=== PATIENT | male | born 1975 | race African-American/Black ===

== ENCOUNTER 2016-05-17 21:05 | Emergency (ER) | payer MEDICAID ==
[2016-04-30 12:41] VITALS: BMI 22.7
[~2016-05-17 21:05] MED LIST: MEGACE400 MG/10 PO; NORCO 7.5/325 T1 TA1 PO; SYNTHROID25 MCG PO; VENTOLIN HFA18 GM INH
== END 2016-05-18 00:03 | disposition home or self-care (01) ==
LOC: D.ER 21:05
DX: G89.18 Other acute postprocedural pain (principal); L08.9 Local infection of the skin and subcutaneous tissue, unspecified; F17.200 Nicotine dependence, unspecified, uncomplicated; F41.9 Anxiety disorder, unspecified; J45.909 Unspecified asthma, uncomplicated; F32.9 Major depressive disorder, single episode, unspecified

== ENCOUNTER 2016-07-24 15:26 | Emergency (ER) | payer MEDICAID ==
[2016-04-30 12:41] VITALS: BMI 22.7
[2016-07-24 17:51] LABS: BASOPHILS 0.2 % (0.0-2.0); HEMATOCRIT 39.6 % (42.0-54.0); HEMOGLOBIN 13.4 g/dL (13.5-17.5); IMMATURE GRANULOCYTES 0.4 % (0-5); LYMPHOCYTES 39.9 % (15-50); MCH 29.9 pg (26.0-34.0); MCHC 33.8 g/dL (31.0-37.0); MCV 88.4 fL (80.0-100.0); MEAN PLATELET VOLUME 8.7 fL (7.4-10.4); MONOCYTES 5.2 % (2-11); NEUTROPHILS 53.3 % (40-80); RBC 4.48 10x6/uL (4.20-6.10); RDW 12.3 % (11.5-14.5); WBC 10.5 10x3/uL (4.8-10.8)
[2016-07-24 17:58] LABS: PLATELET COUNT 282 10x3/uL (130-400)
[2016-07-24 18:03] LABS: ALBUMIN 3.8 g/dL (3.4-5.0); ALKALINE PHOSPHATASE 93 U/L (46-116); ALT (SGPT) 16 U/L (10-68); BILIRUBIN - TOTAL 0.54 mg/dL (0.2-1.3); CALC OSMOLALITY 278 mosm/kg (275-300); CALCIUM 8.6 mg/dL (8.5-10.1); CARBON DIOXIDE 30.8 mmol/L (21.0-32.0); CHLORIDE - SERUM 103 mmol/L (98-107); CREATININE - SERUM 1.1 mg/dL (0.6-1.3); GLUCOSE 97 mg/dL (74-106); POTASSIUM - SERUM 3.3 mmol/L (3.5-5.1); PROTEIN - SERUM 7.6 g/dL (6.4-8.2); SODIUM 140 mmol/L (136-145); UREA NITROGEN 13 mg/dL (7-18); eGFR NON AFRICAN AMERICAN 78 mL/min (90-120)
== END 2016-07-24 19:04 | disposition home or self-care (01) ==
LOC: D.ER 15:26
PROVIDERS: Physician Assistant Medical
DX: J06.9 Acute upper respiratory infection, unspecified (principal); F17.200 Nicotine dependence, unspecified, uncomplicated; F41.9 Anxiety disorder, unspecified; J45.909 Unspecified asthma, uncomplicated

== ENCOUNTER → 2016-11-09 10:13 | Outpatient (CLI) | payer MEDICAID ==
[2016-04-30 12:41] VITALS: BMI 22.7
== END | disposition home or self-care (01) ==
LOC: D.RAD 10:00
DX: M25.512 Pain in left shoulder (principal)

== ENCOUNTER 2016-12-03 10:30 | Day surgery (SDC) | payer MEDICAID ==
[~2016-12-03] VITALS: Ht 170.2 cm; Wt 62.1 kg
[~2016-12-03 10:30] MED LIST changes: +BENZTROPINE MESY1 MG PO; +CHLORPROMAZINE200 MG PO
[2016-12-03 12:31] VITALS: BP 127/60; Ht 170.2 cm; Wt 62.1 kg
== END 2016-12-03 16:00 | disposition home or self-care (01) ==
LOC: D.OPS 10:30 → D.PAN 12:30 → D.OPS 14:00
DX: L60.0 Ingrowing nail (principal); F17.200 Nicotine dependence, unspecified, uncomplicated; J45.909 Unspecified asthma, uncomplicated; E03.9 Hypothyroidism, unspecified; Z01.812 Encounter for preprocedural laboratory examination

== ENCOUNTER 2016-12-10 06:23 | Day surgery (SDC) | payer MEDICAID ==
[~2016-12-10] VITALS: Ht 170.2 cm; Wt 65.3 kg
[~2016-12-10 06:23] MED LIST changes: +CYCLOBENZAPRINE10 MG PO; +GABAPENTIN100 MG PO
[2016-12-10 09:38] VITALS: BP 117/68; Ht 170.2 cm; Wt 65.3 kg
[2016-12-10] MEDS ORDERED: PERCOCET 10/3251 TA1 PO (12:36)
--- NOTE | 2016-12-10 15:13 | NUR ---
1405 ICE APPLIED TO LT SHOULDER 1420 DC PIV W/CATHETER TIP INTACT 1430 DC TEACHING COMPLETE HELPED GET PT DRESSED PT ESCORTED OUT VIA WC W/ DRIVING
--- NOTE | 2016-12-11 16:21 | OP ---
PATIENT NAME: SUNI ARRIAGA MEDICAL RECORD: [id number] :71 LOCATION:[facility] ADMISSION DATE: SURGEON: MARSHAL CALDERON MD DATE OF OPERATION: 12/10/2016 PREOPERATIVE DIAGNOSES: 1. Chronic instability of the left shoulder. 1. Rotator cuff tear of the left shoulder. 2. Impingement of the left shoulder. 3. Acromioclavicular arthritis of the left shoulder. POSTOPERATIVE DIAGNOSES: 1. Chronic instability of the left shoulder. 1. Rotator cuff tear of the left shoulder. 2. Impingement of the left shoulder. 3. Acromioclavicular arthritis of the left shoulder. PROCEDURES: 1. Arthroscopic Bankart repair. 2. Arthroscopic rotator cuff repair. 3. Arthroscopic distal clavicle excision procedure. 4. Arthroscopic subacromial decompression, acromioplasty and bursectomy. SURGEON: Marshal Calderon MD. ANESTHESIA: General. INTRAOPERATIVE COMPLICATIONS: None. SUMMARY OF PATHOLOGIC FINDINGS: The patient had a very large PASTA lesion of the supraspinatus tendon and large Hill-Sachs lesion and a recurrent ALPSA lesion with a positive drive through and anterior instability. OPERATIVE SUMMARY IN DETAIL: After obtaining the appropriate preoperative orthopedic surgery consent as well as anesthetic consultation, evaluation and clearance, the patient was brought to the operating room and placed on table in supine position. After adequate general laryngeal mask was administered, the patient was placed in a right lateral decubitus position. All pressure points were well padded to include down leg peroneal nerve pad as well as axillary roll. The patient was held firmly to the operating table using the vacuum pack suction system. Left upper extremity and shoulder were then prepped and draped in a routine sterile fashion. The arm was held in the Arthrex traction boom at 30 degrees of forward flexion, 30 degrees of abduction with 10 pounds of traction laterally. Arthroscopy was established in the glenohumeral posterior portal. Anterior portal was established in the anterior safe interval. Diagnostic arthroscopy revealed the above findings. Transrotator cuff tear portal was created as well. The findings of the Bankart as well as the PASTA lesion were noted. At this point, the anterior labral periosteal sleeve was mobilized and then it was reapproximated back to the anterior aspect of the glenoid with a large bolster of labrum and capsule using synched labral tape held by 2.9 PushLocks anteriorly at the 7, 8 and 9 position. Having completed this, the patient's drive through was no longer positive. I felt like there was a very good effect for reapproximation. At this point, attention was turned to the subacromial space. While in the subacromial space, the coracoacromial ligament that was not formally released prior was released and the acromion was OPERATIVE REPORT [id number] SUNI ARRIAGA burred down to a type 1 acromion. Distal clavicular osteophytes were taken down from 1 cm distal clavicle. Having completed this, attention was turned to the rotator cuff tear. The rotator cuff PASTA type lesion was treated with a single #2 FiberTape in an inverted mattress style fashion, anchored at the lesion itself, which had already been decorticated, held in place with a 5.5 SwiveLock. Of note, remplissage of the Hill-Sachs lesion was not done given the fact that the patient had a rotator cuff tear as well. Having completed this, arthroscopy portals were closed in routine interrupted fashion using 4-0 Prolene. Sterile dressings were applied. The patient was awakened, taken to recovery room in stable condition. All final needle and sponge counts were correct. TRANSINT:[id number] Voice Confirmation ID: [id number] DOCUMENT ID: [id number] YUMIKO GAGNON, MARSHAL QURESHI at 1621 CC: [id number] DICTATION DATE: 12/10/16 1258 PANEL WIRER: 12/10/16 1907 [facility] 12/10/16 [facility] [address] [place] [address]
== END 2016-12-10 14:30 | disposition home or self-care (01) ==
LOC: D.OPS 06:23 → D.PAN 12:00 → D.OPS 12:45
DX: M25.312 Other instability, left shoulder (principal); M75.102 Unspecified rotator cuff tear or rupture of left shoulder, not specified as traumatic; M75.42 Impingement syndrome of left shoulder; M13.812 Other specified arthritis, left shoulder; Z01.812 Encounter for preprocedural laboratory examination

== ENCOUNTER → 2016-12-16 10:51 | Emergency (ER) | payer MEDICAID ==
[2016-12-10 09:38] VITALS: BMI 22.6
[~2016-12-16 10:51] MED LIST changes: +PERCOCET 10/3251 TA1 PO
== END | disposition left against medical advice (07) ==
LOC: D.ER 10:51
DX: Z02.9 Encounter for administrative examinations, unspecified (principal)

== ENCOUNTER 2017-11-26 03:35 | Inpatient (IN) | payer SELFPAY ==
[~2017-11-26] VITALS: Ht 170.2 cm; Wt 68.0 kg
[2017-11-26 04:30] VITALS: BP 139/87
[2017-11-26 04:31] LABS: BASOPHILS 0.1 % (0-2); EOSINOPHILS 0 % (0-7); HEMATOCRIT 44.5 % (42.0-54.0); IMMATURE GRANULOCYTES 0.4 % (0-5); LYMPHOCYTES 7.4 % (15-50); MCH 28.8 pg (26.0-34.0); MCHC 33.7 g/dL (31.0-37.0); MCV 85.4 fL (80.0-100.0); MEAN PLATELET VOLUME 8.9 fL (7.4-10.4); MONOCYTES 5.1 % (2-11); PLATELET COUNT 267 10x3/uL (130-400); RBC 5.21 10x6/uL (4.20-6.10); RDW 13.2 % (11.5-14.5); WBC 18.2 10x3/uL (4.8-10.8)
[2017-11-26 04:41] LABS: APTT 22.8 SECONDS (22.8-39.4); INR 1.1 (0.85-1.17); PROTIME 13.8 SECONDS (11.6-15.0)
[2017-11-26 04:45] LABS: ALBUMIN 4.3 g/dL (3.4-5.0); ALKALINE PHOSPHATASE 120 U/L (46-116); ALT (SGPT) 142 U/L (10-68); AMYLASE - SERUM 79 U/L (25-115); BILIRUBIN - TOTAL 0.45 mg/dL (0.2-1.3); CALC OSMOLALITY 279 mosm/kg (275-300); CALCIUM 8.5 mg/dL (8.5-10.1); CARBON DIOXIDE 27.2 mmol/L (21.0-32.0); CHLORIDE - SERUM 105 mmol/L (98-107); GLUCOSE 120 mg/dL (74-106); LIPASE 79 U/L (73-393); POTASSIUM - SERUM 3.7 mmol/L (3.5-5.1); PROTEIN - SERUM 8.3 g/dL (6.4-8.2); SODIUM 141 mmol/L (136-145); UREA NITROGEN 8 mg/dL (7-18); eGFR NON AFRICAN AMERICAN 86 mL/min (90-120)
[2017-11-26 05:31] VITALS: BP 151/83
[2017-11-26 06:28] VITALS: BP 155/79
[2017-11-26 07:59] VITALS: BP 142/77; BMI 23.5
[2017-11-26 12:47] VITALS: BP 140/76
[2017-11-26 15:41] LABS: UDS - AMPHET NEGATIVE QUAL (NEGATIVE); UDS - BARB NEGATIVE QUAL (NEGATIVE); UDS - BENZO NEGATIVE QUAL (NEGATIVE); UDS - COCAINE NEGATIVE QUAL (NEGATIVE); UDS - OPIATE POSITIVE QUAL (NEGATIVE); UDS - PCP NEGATIVE QUAL (NEGATIVE); UDS - THC POSITIVE QUAL (NEGATIVE)
[2017-11-26 15:57] LABS: APPEARANCE CLEAR (CLEAR); COLOR DK YELLOW (YELLOW); SPECIFIC GRAVITY 1.025 (1.005-1.020)
[2017-11-26 15:58] LABS: BILIRUBIN NEGATIVE (NEGATIVE); GLUCOSE NEGATIVE (NEGATIVE); KETONE SMALL mg/dL (NEGATIVE); NITRITE NEGATIVE (NEGATIVE); PROTEIN 1+ mg/dL (NEGATIVE); UROBILINOGEN NORMAL (NORMAL)
[2017-11-26 16:00] LABS: BACTERIA FEW /hpf (NONE SEEN); WHITE CELLS - URINE 0-5 /hpf (0-5)
[2017-11-26 19:48] VITALS: BP 139/71
[2017-11-27 01:16] VITALS: BP 128/58
[2017-11-27 04:09] VITALS: BP 116/69
[2017-11-27 06:43] LABS: BASOPHILS 0.1 % (0-2); EOSINOPHILS 0.6 % (0-7); HEMATOCRIT 41.9 % (42.0-54.0); HEMOGLOBIN 13.9 g/dL (13.5-17.5); IMMATURE GRANULOCYTES 0.2 % (0-5); LYMPHOCYTES 27.8 % (15-50); MCH 28.5 pg (26.0-34.0); MCHC 33.2 g/dL (31.0-37.0); MEAN PLATELET VOLUME 9.4 fL (7.4-10.4); MONOCYTES 8.6 % (2-11); NEUTROPHILS 62.7 % (40-80); PLATELET COUNT 270 10x3/uL (130-400); RBC 4.87 10x6/uL (4.20-6.10); RDW 13.6 % (11.5-14.5)
[2017-11-27 06:44] LABS: WBC 8.1 10x3/uL (4.8-10.8)
[2017-11-27 07:07] LABS: CALC OSMOLALITY 274 mosm/kg (275-300); CALCIUM 8.7 mg/dL (8.5-10.1); CARBON DIOXIDE 28.8 mmol/L (21.0-32.0); CHLORIDE - SERUM 101 mmol/L (98-107); GLUCOSE 102 mg/dL (74-106); POTASSIUM - SERUM 3.4 mmol/L (3.5-5.1); SODIUM 137 mmol/L (136-145); UREA NITROGEN 14 mg/dL (7-18); eGFR NON AFRICAN AMERICAN 86 mL/min (90-120)
[2017-11-27 08:23] VITALS: BP 117/67
[2017-11-27 11:28] VITALS: BP 117/67
[2017-11-27 15:56] VITALS: Ht 170.2 cm; Wt 68.0 kg
[2017-11-27 16:05] VITALS: BP 134/86
[2017-11-27 20:22] VITALS: BP 130/79
[2017-11-28 04:38] VITALS: BP 118/78
[2017-11-28 04:42] VITALS: BP 172/87
[2017-11-28 13:24] VITALS: BP 109/62
[2017-11-28 17:37] VITALS: BP 116/74
[2017-11-28 19:33] VITALS: BP 147/90
[2017-11-28 23:43] VITALS: BP 121/78
[2017-11-29 04:08] VITALS: BP 108/65
[2017-11-29 08:33] VITALS: BP 122/86
[2017-11-29] MEDS ORDERED: MOBIC7.5 MG PO (09:00)
[2017-11-29] MEDS ORDERED: DURAGESIC1 PATCH .1 TRANSDERM (09:00)
[2017-11-29 12:06] VITALS: BP 130/85
[2017-11-29 15:47] VITALS: BP 126/92
[2017-11-29] MEDS ORDERED: OXYCODONE HCL5 MG PO (16:32)
[2017-11-30] MEDS ORDERED: ROBAXIN-750750 MG PO (18:57)
[2017-11-30] MEDS ORDERED: PREDNISONE20 MG PO (18:57)
== END 2017-11-29 17:27 | disposition home or self-care (01) | DRG 200 ==
LOC: D.ER 03:35 → D.EDHOLD 06:43 → D.MS 06:43
PROVIDERS: Emergency Medicine; Surgery
PROC: 0HQ1XZZ Repair Face Skin, External Approach (ICD-10-PCS; principal; 2017-11-26)
DX: S27.0XXA Traumatic pneumothorax, initial encounter (principal); S22.43XA Multiple fractures of ribs, bilateral, initial encounter for closed fracture; S32.019A Unspecified fracture of first lumbar vertebra, initial encounter for closed fracture; S32.029A Unspecified fracture of second lumbar vertebra, initial encounter for closed fracture; S32.039A Unspecified fracture of third lumbar vertebra, initial encounter for closed fracture; Y04.2XXA Assault by strike against or bumped into by another person, initial encounter; S01.81XA Laceration without foreign body of other part of head, initial encounter; S01.111A Laceration without foreign body of right eyelid and periocular area, initial encounter; S02.2XXA Fracture of nasal bones, initial encounter for closed fracture; J45.909 Unspecified asthma, uncomplicated; F31.9 Bipolar disorder, unspecified; F17.200 Nicotine dependence, unspecified, uncomplicated; F10.10 Alcohol abuse, uncomplicated; S40.812A Abrasion of left upper arm, initial encounter; S40.811A Abrasion of right upper arm, initial encounter

== ENCOUNTER 2017-11-30 16:44 | Emergency (ER) | payer SELFPAY ==
[~2017-11-30] VITALS: Ht 170.2 cm; Wt 71.4 kg
[~2017-11-30 16:44] MED LIST changes: +DURAGESIC1 PATCH .1 TRANSDERM; +MOBIC7.5 MG PO; +OXYCODONE HCL5 MG PO
[2017-11-30 16:50] VITALS: Ht 170.2 cm; Wt 71.4 kg
[2017-11-30] MEDS ORDERED: PREDNISONE20 MG PO (18:57)
[2017-11-30] MEDS ORDERED: ROBAXIN-750750 MG PO (18:57)
[2017-11-30 19:08] VITALS: BP 123/59
== END 2017-11-30 19:08 | disposition home or self-care (01) ==
LOC: D.ER 16:44
DX: R52 Pain, unspecified (principal); F17.200 Nicotine dependence, unspecified, uncomplicated

== ENCOUNTER 2017-12-06 10:56 | Day surgery (SDC) | payer MEDICAID ==
[~2017-12-06] VITALS: Ht 170.2 cm; Wt 71.2 kg
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
[~2017-12-06 10:56] MED LIST changes: +PREDNISONE20 MG PO; +ROBAXIN-750750 MG PO
[2017-12-06] MEDS ORDERED: OXYCODONE HCL5 MG PO (12:27)
[2017-12-06 12:38] VITALS: Ht 170.2 cm; Wt 71.2 kg
== END 2017-12-06 15:20 | disposition home or self-care (01) ==
LOC: D.OPS 10:56
DX: S02.2XXA Fracture of nasal bones, initial encounter for closed fracture (principal); Y04.0XXA Assault by unarmed brawl or fight, initial encounter; J45.909 Unspecified asthma, uncomplicated; K21.9 Gastro-esophageal reflux disease without esophagitis

== ENCOUNTER 2018-02-27 13:29 | Emergency (ER) | payer MEDICAID ==
[~2018-02-27] VITALS: Ht 170.2 cm; Wt 66.4 kg
[2018-02-27 13:44] VITALS: Ht 170.2 cm; Wt 66.4 kg
[2018-02-27] MEDS ORDERED: ULTRAM50 MG PO (16:42)
[2018-02-27 16:44] VITALS: BP 112/58
== END 2018-02-27 16:48 | disposition home or self-care (01) ==
LOC: D.ER 13:29
DX: S00.33XA Contusion of nose, initial encounter (principal); W22.8XXA Striking against or struck by other objects, initial encounter; Y93.89 Activity, other specified; Y92.019 Unspecified place in single-family (private) house as the place of occurrence of the external cause; F17.200 Nicotine dependence, unspecified, uncomplicated

== ENCOUNTER → 2018-04-05 13:39 | Outpatient (CLI) | payer MEDICAID ==
[2018-02-27 13:44] VITALS: BMI 22.9
[~2018-04-05 13:39] MED LIST changes: +ULTRAM50 MG PO
== END | disposition home or self-care (01) ==
LOC: D.RAD 04-04 13:30
DX: M19.019 Primary osteoarthritis, unspecified shoulder (principal)

== ENCOUNTER → 2018-04-12 17:24 | Outpatient (CLI) | payer MEDICAID ==
[2018-02-27 13:44] VITALS: BMI 22.9
== END | disposition home or self-care (01) ==
LOC: D.LABREF 17:24
DX: M19.012 Primary osteoarthritis, left shoulder (principal); Z11.8 Encounter for screening for other infectious and parasitic diseases

== ENCOUNTER 2018-05-05 11:31 | Emergency (ER) | payer MEDICAID ==
[~2018-05-05] VITALS: Ht 170.2 cm; Wt 62.7 kg
[~2018-05-05 11:31] MED LIST changes: +ATIVAN1 MG PO
[2018-05-05 11:46] VITALS: Ht 170.2 cm; Wt 62.7 kg
[2018-05-05] MEDS ORDERED: NORCO 7.5/325 T1 TA1 PO (13:02)
[2018-05-05 13:18] VITALS: BP 128/078
== END 2018-05-05 13:19 | disposition home or self-care (01) ==
LOC: D.ER 11:31
DX: M25.512 Pain in left shoulder (principal); G89.29 Other chronic pain; F17.200 Nicotine dependence, unspecified, uncomplicated

== ENCOUNTER 2018-05-09 11:15 | Inpatient (IN) | payer MEDICAID ==
[2018-05-05 11:34] LABS: BASOPHILS 0.3 % (0-2); EOSINOPHILS 1.2 % (0-7); HEMATOCRIT 41.3 % (42.0-54.0); IMMATURE GRANULOCYTES 0.2 % (0-5); LYMPHOCYTES 38.7 % (15-50); MCH 29.8 pg (26.0-34.0); MCHC 33.9 g/dL (31.0-37.0); MCV 87.9 fL (80.0-100.0); MEAN PLATELET VOLUME 9.2 fL (7.4-10.4); MONOCYTES 4.9 % (2-11); NEUTROPHILS 54.7 % (40-80); PLATELET COUNT 229 10x3/uL (130-400); RDW 13.8 % (11.5-14.5); WBC 5.8 10x3/uL (4.8-10.8)
[2018-05-05 11:49] LABS: APTT 25.2 SECONDS (22.8-39.4); CALC OSMOLALITY 272 mosm/kg (275-300); CALCIUM 8.6 mg/dL (8.5-10.1); CHLORIDE - SERUM 103 mmol/L (98-107); CREATININE - SERUM 0.9 mg/dL (0.6-1.3); INR 0.99 (0.85-1.17); POTASSIUM - SERUM 3.8 mmol/L (3.5-5.1); PROTIME 12.6 SECONDS (11.6-15.0); SODIUM 139 mmol/L (136-145); UREA NITROGEN 8 mg/dL (7-18); eGFR NON AFRICAN AMERICAN > 90 mL/min (90-120)
[2018-05-05 11:50] LABS: GLUCOSE 53 mg/dL (74-106)
[2018-05-05 12:52] LABS: APPEARANCE CLEAR (CLEAR); BILIRUBIN NEGATIVE (NEGATIVE); COLOR YELLOW (YELLOW); EPITHELIAL CELLS OCC /hpf (0-5); GLUCOSE NEGATIVE (NEGATIVE); KETONE NEGATIVE (NEGATIVE); NITRITE NEGATIVE (NEGATIVE); PROTEIN NEGATIVE (NEGATIVE); WHITE CELLS - URINE RARE /hpf (0-5)
[2018-05-05 12:53] LABS: BACTERIA FEW /hpf (NONE SEEN)
[~2018-05-09] VITALS: Ht 170.2 cm; Wt 63.5 kg
[2018-05-09 12:19] VITALS: BP 106/64; BMI 22.4
[2018-05-09 18:21] VITALS: BP 109/71
[2018-05-09 18:50] VITALS: BP 100/68; Ht 170.2 cm; Wt 63.5 kg
[2018-05-09 19:00] VITALS: BP 109/78
[2018-05-10] VITALS: BP 106/70
[2018-05-10 05:42] LABS: HEMATOCRIT 40.8 % (42.0-54.0); HEMOGLOBIN 13.6 g/dL (13.5-17.5); MCH 29.3 pg (26.0-34.0); MCHC 33.3 g/dL (31.0-37.0); MCV 87.9 fL (80.0-100.0); MEAN PLATELET VOLUME 9.2 fL (7.4-10.4); RBC 4.64 10x6/uL (4.20-6.10); RDW 14.1 % (11.5-14.5); WBC 9.5 10x3/uL (4.8-10.8)
[2018-05-10 05:55] VITALS: BP 103/62
[2018-05-10 08:32] VITALS: BP 113/63
[2018-05-10] MEDS ORDERED: Percocet-10 PO (08:42)
[2018-05-10] MEDS ORDERED: OXYCODONE-APAP1 TAB PO (08:42)
--- NOTE | 2018-05-10 16:43 | OP ---
PATIENT NAME: SUNI ARRIAGA MEDICAL RECORD: [id number] :71 LOCATION:[id number] ADMISSION DATE:05/09/18 SURGEON: MARSHAL CALDERON MD DATE OF OPERATION: 05/09/2018 PREOPERATIVE DIAGNOSES: 1. Osteoarthritis of the left shoulder. 2. Retained hardware from prior surgery. POSTOPERATIVE DIAGNOSES: 1. Osteoarthritis of the left shoulder. 2. Retained hardware from prior surgery. PROCEDURES: 1. Left total shoulder arthroplasty. 2. Removal of hardware, left shoulder. SURGEON: Marshal Calderon MD MAGNETIC PROSPECTOR: Jung Roth APN INTRAOPERATIVE COMPLICATIONS: None. SUMMARY OF PATHOLOGIC FINDINGS: The patient had osteoarthritis of the glenohumeral compartment. No instability was noted. The patient had a prior Latarjet surgery and had retained screws that would have prevented the placement of the glenoid, so these were thus removed prior to implantation. OPERATIVE SUMMARY IN DETAIL: After obtaining the appropriate preoperative orthopedic surgery consent as well as anesthetic consultation, evaluation, and clearance, the patient was brought to the operating room and placed on the operating table in supine position. After general laryngeal mask airway was administered, the patient was placed in the beach chair position. All pressure points were well padded. He was held firmly to the operating table using the vacuum pack suction system. Left upper extremity and shoulder were prepped and draped in routine sterile fashion. The arm was held in the Arthrex [place] device. Deltopectoral incision was taken down through the deltopectoral interval. Substantial amount of scar tissue was noted from prior operative intervention. The deltoid was eventually completely released from the shoulder capsule and retracted laterally using the brown retractor. The conjoined tendon likewise was dissected free of all scar tissue and gently retracted medially. Subscapularis was then taken down in the usual fashion for a good visualization of the anterior Latarjet screws. Latarjet screws were removed along with the washers. Having completed this, proximal humeral cut was made using the proximal humeral cutting guide for the Arthrex [place] system. Serial and sequential reaming and broaching were then followed by placement of the size 6 humeral stem with a cut protector guide. The glenoid was thoroughly visualized and evaluated. Circumferential labrectomy was then followed by placement of the guide pin. Guide pin was then followed by reaming and preparation of the glenoid for final implantation of the glenoid component. Size medium glenoid component using the Arthrex Univers VaultLock system was chosen. After copious irrigation, the Arthrex VaultLock was cemented into place. All excess cement was removed and the glenoid was held in place until cement dried. At this point, the proximal humeral stem, size 6 apex Univers stem was put into place with a size 46 x 18 humeral head with the offset set for maximal coverage OPERATIVE REPORT [id number] SUNI ARRIAGA posteriorly and superiorly. The shoulder was reduced, taken through range of motion and found to have the appropriate posterior subluxation. The subscap was then reapproximated in transosseous fashion to the lesser tuberosity. Having completed this, copious irrigation was followed by 2-0 Vicryl and skin kate for final closure. Sterile dressings were applied. The patient was awakened, taken to recovery room in stable condition. All final needle and sponge counts were correct. TRANSINT:[id number] Voice Confirmation ID: [id number] DOCUMENT ID: [id number] YUMIKO GAGNON, MARSHAL QURESHI at 1643 CC: [id number] DICTATION DATE: 05/10/18 0631 SHEAR OPERATOR HELPER: 05/10/18 1025 [facility] 05/10/18 [id number] [place] [address]
== END 2018-05-10 10:39 | disposition home or self-care (01) | DRG 483 ==
LOC: D.MS 11:15 → D.SDCHOLD 11:15 → D.MS 18:03 → D.SDCHOLD 18:40 → D.MS 05-10 10:39
PROVIDERS: ADMIT Orthopaedic Surgery
PROC: 0RRK0JZ Replacement of Left Shoulder Joint with Synthetic Substitute, Open Approach (ICD-10-PCS; principal; 2018-05-09 14:00)
PROC: 0RPK04Z Removal of Internal Fixation Device from Left Shoulder Joint, Open Approach (ICD-10-PCS; 2018-05-09 14:00)
DX: M19.012 Primary osteoarthritis, left shoulder (principal); F41.9 Anxiety disorder, unspecified; F32.9 Major depressive disorder, single episode, unspecified

== ENCOUNTER 2018-06-06 10:40 | Emergency (ER) | payer MEDICAID ==
[~2018-06-06] VITALS: Ht 170.2 cm; Wt 62.3 kg
[~2018-06-06 10:40] MED LIST changes: +OXYCODONE-APAP1 TAB PO; +Percocet-10 PO
[2018-06-06 10:49] VITALS: Ht 170.2 cm; Wt 62.3 kg
[2018-06-06 11:29] LABS: UDS - AMPHET NEGATIVE QUAL (NEGATIVE); UDS - BARB NEGATIVE QUAL (NEGATIVE); UDS - BENZO NEGATIVE QUAL (NEGATIVE); UDS - COCAINE POSITIVE QUAL (NEGATIVE); UDS - OPIATE NEGATIVE QUAL (NEGATIVE); UDS - PCP NEGATIVE QUAL (NEGATIVE); UDS - THC POSITIVE QUAL (NEGATIVE)
[2018-06-06 11:33] LABS: APPEARANCE HAZY (CLEAR); BACTERIA FEW /hpf (NONE SEEN); BILIRUBIN NEGATIVE (NEGATIVE); COLOR YELLOW (YELLOW); EPITHELIAL CELLS 0-5 /hpf (0-5); GLUCOSE NEGATIVE (NEGATIVE); KETONE LARGE mg/dL (NEGATIVE); NITRITE NEGATIVE (NEGATIVE); PROTEIN NEGATIVE (NEGATIVE); RED CELLS - URINE 0-5 /hpf (0-5); SPECIFIC GRAVITY 1.015 (1.005-1.020); UROBILINOGEN NORMAL (NORMAL); WHITE CELLS - URINE OCC /hpf (0-5)
[2018-06-06 11:34] LABS: MUCUS <1+ /lpf (NONE SEEN)
[2018-06-06 12:06] LABS: ALBUMIN 4.2 g/dL (3.4-5.0); ALKALINE PHOSPHATASE 121 U/L (46-116); ALT (SGPT) 21 U/L (10-68); BILIRUBIN - TOTAL 0.62 mg/dL (0.2-1.3); CALC OSMOLALITY 278 mosm/kg (275-300); CALCIUM 9.1 mg/dL (8.5-10.1); CARBON DIOXIDE 25.1 mmol/L (21.0-32.0); CHLORIDE - SERUM 101 mmol/L (98-107); CREATININE - SERUM 0.9 mg/dL (0.6-1.3); GLUCOSE 90 mg/dL (74-106); POTASSIUM - SERUM 3.9 mmol/L (3.5-5.1); PROTEIN - SERUM 8.3 g/dL (6.4-8.2); SODIUM 139 mmol/L (136-145); UREA NITROGEN 16 mg/dL (7-18); eGFR NON AFRICAN AMERICAN > 90 mL/min (90-120)
[2018-06-06 12:32] LABS: BASOPHILS 0.4 % (0-2); EOSINOPHILS 0 % (0-7); HEMATOCRIT 40.1 % (42.0-54.0); HEMOGLOBIN 13.9 g/dL (13.5-17.5); IMMATURE GRANULOCYTES 0.1 % (0-5); LYMPHOCYTES 22.7 % (15-50); MCH 29.8 pg (26.0-34.0); MCHC 34.7 g/dL (31.0-37.0); MCV 86.1 fL (80.0-100.0); MEAN PLATELET VOLUME 8.8 fL (7.4-10.4); NEUTROPHILS 67.8 % (40-80); PLATELET COUNT 269 10x3/uL (130-400); RBC 4.66 10x6/uL (4.20-6.10); RDW 13.5 % (11.5-14.5); WBC 6.8 10x3/uL (4.8-10.8)
[2018-06-06 21:42] VITALS: BP 136/78
== END 2018-06-06 21:44 ==
LOC: D.ER 10:40
PROVIDERS: Family Medicine
DX: R45.851 Suicidal ideations (principal); M25.512 Pain in left shoulder

== ENCOUNTER 2018-09-03 21:03 | Emergency (ER) | payer MEDICAID ==
[~2018-09-03] VITALS: Ht 170.2 cm; Wt 63.6 kg
[2018-09-03 21:08] VITALS: Ht 170.2 cm; Wt 63.6 kg
[2018-09-03] MEDS ORDERED: ZYPREXA2.5 MG (21:09)
[2018-09-03] MEDS ORDERED: REMERON15 MG (21:10)
[2018-09-03] MEDS ORDERED: TYLENOL W/CODEI1 TAB PO (23:28)
[2018-09-03 23:50] VITALS: BP 128/89
== END 2018-09-03 23:50 | disposition home or self-care (01) ==
LOC: D.ER 21:03
DX: S43.402A Unspecified sprain of left shoulder joint, initial encounter (principal); W20.8XXA Other cause of strike by thrown, projected or falling object, initial encounter; Y93.89 Activity, other specified; Y92.89 Other specified places as the place of occurrence of the external cause